=== PATIENT | female | born 1980 | race Caucasian/White ===

== ENCOUNTER 2020-09-17 08:56 | Outpatient (CLI) | payer BC, SELFPAY ==
--- NOTE | ~2020-09-17 | XR_ITS ---
MODIFIED ESOPHAGRAM HISTORY: Dysphagia. TECHNIQUE: Modified barium esophagram was performed on 09/17/2020. I administered fluoroscopy and perf ormed the exam with speech pathologist. Patient was seated for lateral fluoroscopic imaging for jeremy stion of thin liquids, pudding, solids and quantified amounts, followed by thin liquids in uncontroll ed amounts. This was recorded on tape. A single fluoroscopic spot image was also recorded. The DAP fo r this procedure was 2.248 Gycm2. The amount of fluoroscopy time used during this procedure was 2.0 m inutes. FINDINGS: Oral stage: Adequate function. Pharyngeal stage: Adequate function. Cervical/esophageal stage: Adequate function. IMPRESSION: Patient tolerated regular consistency oral feedings in the upright position. Please marilyn elate with speech pathologist findings and specific feeding recommendations. Reviewed, dictated and finalized at location A. SERVER DBA IMPRESSION: Patient tolerated regular consistency oral feedings in the upright position. Please correlate with speech pathologist findings and specific feedi ng recommendations.
--- NOTE | 2020-09-18 09:23 | STOPEVAL ---
MODIFIED BARIUM SWALLOW EVALUATION: Thank you for referring Winsome Saenz to [facility].? Attending Provider: Margaret Laguna, * Outpatient Evaluation ([facility] [place] Start: 09/17/20 16:28 Freq: Status: Discharge Protocol: Document 09/17/20 16:28 BECHERERT (Rec: 09/17/20 16:28 BECHERERT [id number]) Therapy Assessment Status Assessment Status Assessment Status Evaluation Outpatient Past Medical History Past Medical History Source of Past Medical History Patient Prior Level of Function Prior Swallow Level Prior Intake Method Oral Prior Diet Regular (Level 7 Diet) Prior Liquid Consistency Thin (Level 0 Diet) Pain Assessment Timing of Pain Assessment Timing of Pain Assessment Assessment Self Report Self Report Pain Level 0 Pain Score Pain Score 0: Self Report Modified Barium Swallow Evaluation Recent Swallowing History Reports Dysphagia Yes: food gets lodged;water can't get through Duration of Dysphagia x10 years but it is now getting worse Other Factors Impacting Dysphagia None History of Pneumonia No Reported Difficult Consistencies Solids Intake Method Prior to Swallow Oral Evaluation Diet Prior to Swallow Evaluation Regular, Level 7 Liquid Consistency Prior to Swallow Thin (0) Evaluation Consistency Solid Consistency Other Amount cracker Method of Presentation Spoon Oral Preparatory Symptoms None Oral Phase Symptoms None Pharyngeal Phase Symptoms None Severity of Vallecular Residue None - 0% No Residue Severity of Pyriform Sinus Residue None - 0% No Residue 8 Point Laryngeal Penetration-Aspiration Material Does Not Enter Airway Scale Cervical/Esophageal Symptoms None Mixed Consistency Other Amount fruit cocktail Method of Presentation Spoon Oral Preparatory Symptoms None Oral Phase Symptoms None Pharyngeal Phase Symptoms None Severity of Vallecular Residue None - 0% No Residue Severity of Pyriform Sinus Residue None - 0% No Residue 8 Point Laryngeal Penetration-Aspiration Material Does Not Enter Airway Scale Cervical/Esophageal Symptoms None Pureed Consistency Method of Presentation Spoon Oral Preparatory Symptoms None Oral Phase Symptoms None Pharyngeal Phase Symptoms None Severity of Vallecular Residue None - 0% No Residue Severity of Pyriform Sinus Residue None - 0% No Residue 8 Point Laryngeal Penetration-Aspiration Material Does Not Enter Airway Scale Cervical/Esophageal Symptoms None Thin Uncontrolled 2 Method of Presentation Straw Oral Prep
== END 2020-09-17 08:57 | disposition home or self-care (01) ==
LOC: ANHIMG 09:03
PROVIDERS: PCP Internal Medicine; Visit Provider Internal Medicine
DX: R13.10 Dysphagia, unspecified (principal)
CPT/HCPCS: 92611

== ENCOUNTER 2020-12-08 10:53 | Outpatient (CLI) | payer BC, SELFPAY ==
--- NOTE | 2020-12-11 19:43 | P.PCNHOL_ITS ---
Holter/Event Monitor Holter/Event Monitor Date of procedure: 12/11/20 Procedure Type: 48 hour Holter monitor Diagnosis: Palpitations Indications: Palpitations Image/Tracing Quality: Good Finding: The patient was monitored for 48 hours. The underlying rhythm was sinus with a minimum heart rate of 47 beats per minute, average heart rate of 78 beats per minute and a maximum heart rate 133 beats per minute. There were 30 PVCs noted. There were occasional APCs noted, with 9900 recorded, with some atrial bigeminy and 630 atrial couplets. There was no atrial fibrillation, SVT, heart block, V- tach or pauses. No symptoms were reported. Conclusion: 48 hour Holter monitor is remarkable for occasional APCs, with some atrial bigeminy atrial couplets noted. No symptoms recorded.
== END 2020-12-08 10:54 | disposition home or self-care (01) ==
PROVIDERS: PCP Internal Medicine; Visit Provider Internal Medicine
DX: R00.2 Palpitations (principal)
CPT/HCPCS: 93225; 93226

== ENCOUNTER 2021-11-29 15:08 | Emergency (ER) | payer BC, SELFPAY ==
--- NOTE | ~2021-11-29 | CT_ITS ---
EXAMINATION: CT brain wo con DATE: 11/29/2021 16:59 INDICATION: Left-sided facial pain. TECHNIQUE: Computed tomography (CT) of the head was performed without intravenous contrast. The mA wa s adjusted according to patient size. Iterative reconstruction technique was employed. The dose-lengt h product was 529.67 mGy-cm. COMPARISON: None FINDINGS: There is no intracranial hemorrhage, acute infarction, or abnormal intracranial mass lesion . The ventricles are normal in size. The paranasal sinuses are clear. The mastoid air cells are ovidio l. The orbits are normal. There are multiple masses in the scalp measuring up to 11 mm, likely benign . IMPRESSION: 1. Normal brain. Reviewed, dictated and finalized at location E. IMPRESSION: 1. Normal brain.
[2021-11-29 15:29] VITALS: BP 136/87; PULSE 110; RESP 18; TEMP 37.1; O2SAT 98
[2021-11-29 16:36] VITALS: BP 134/82; PULSE 76; RESP 18; TEMP 37.1; O2SAT 98
--- NOTE | 2021-11-29 16:51 | ED.GENADULT ---
HPI - General Adult General Chief complaint: Neuro Symptoms/Deficit Stated complaint: left side of face not working Time Seen by Provider: 11/29/21 16:19 Source: patient Mode of arrival: ambulatory Limitations: no limitations History of Present Illness HPI narrative: Patient is 41 years old white female presented to the ED complaining of that her left face look funny, not right, numbness and weird feeling at the left jaw, possible numbness, also mentioned that the drink sometimes come out left side of her mouth over the last 24 hours. Patient's told her that she looks like probably having Gee's palsy. Patient underwent dental procedure 5 days ago, subsequently developed some weird feeling at the back of her neck and at left jaw. Started on prednisone by her dentist. Patient denies any fever, chills, nausea, vomiting, headache. Related Data Home Medications Medication Instructions Recorded Confirmed acetaminophen 11/29/21 docusate sodium PO 11/29/21 fenofibrate nanocrystallized mg PO 11/29/21 ibuprofen 11/29/21 methylprednisolone 11/29/21 omeprazole 11/29/21 thyroid (pork) [[place] Thyroid] 11/29/21 thyroid (pork) [[place] Thyroid] 11/29/21 Allergies Allergy/AdvReac Type Severity Reaction Status Date / Time No Known Allergies Allergy Mild Verified 11/29/21 15:34 Review of Systems Review of Systems: CONSTITUTIONAL: Denies fever, chills, or sweats. EYES: Denies visual changes, redness, or discharge. ENT: Denies rhinorrhea, congestion, sore throat, or otalgia. CARDIOVASCULAR: Denies chest pain, palpitations, or edema. RESPIRATORY: Denies cough or dyspnea. GASTROINTESTINAL: Denies abdominal pain, nausea, vomiting, or diarrhea. GENITOURINARY: Denies dysuria or hematuria. SKIN: Denies rash or itching. MUSCULOSKELETAL: Denies back pain, joint pain, or myalgia. NEUROLOGIC: Denies headache, numbness, or weakness. PSYCHIATRIC: Denies anxiety or depression. Exam Narrative: General appearance: Well-developed, well-nourished Skin: Normal color Head: Normocephalic, nontraumatic Eyes: Clear conjunctiva ENT: Oropharynx normal, ears normal, nose normal Neck: Supple, nontender Chest and respiratory: Airway patent, no respiratory distress, no accessory muscle use Heart: Regular rate/rhythm Abdomen: Soft, nontender, no organomegaly, quiet bowel sounds Vascular: Normal peripheral pulses, normal capillary refill. Musculoskeletal: Normal range of motion, nontender back Neurologic: Alert and oriented ?3, POSITION DESCRIPTION MANAGER is normal as tested, no gross motor deficit Neuro: General: patient oriented x3, no focal motor deficits, CN's II-XI intact bilaterally and normal sensation to monofilament Cranial nerves: Yes CN's II-XII intact bilaterally, Yes Facial sensation intact/muscles of mastication intact, Yes Intact sense of smell present, Yes Equal, round and reactive pupils present, Yes Bilaterally intact EOM present, Yes Normal facial strength present and Yes facial symmetry Cognition (Neuro): normal cognition Speech: normal speech Gait exam (Neuro): Normal gait present Motor exam (neuro): 5/5 motor strength present throughout Sensory Exam: normal sensation Course Course Emergency Course: Physical exam did not show any signs of Gee's palsy. Patient declined CT soft tissue neck to rule out the possibility of complication of the dental procedure including abscess formation.
[2021-11-29 17:09] LABS: Basophils Absolute Auto 0.1 K/mm3 (0.0-0.1); Basophils Percent Auto 0.5 % (0.2-1.2); Eosinophils Percent Auto 0.3 % (0-4.4); Hematocrit 39.6 % (37.0-47.0); Hemoglobin 13.7 g/dL (12.0-15.0); Immature Granulocyte Absolute 0.42 K/mm3 (0.00-0.031); Immature Granulocyte Percent A 2.9 % (0-0.5); Lymphocytes Absolute Auto 2.31 K/mm3 (0.9-3.2); Lymphocytes Percent Auto 16.1 % (18.3-44.2); Mean Corpuscular HGB Conc 34.6 g/dl (32-36); Mean Corpuscular Hemoglobin 31.1 pg (26-34); Mean Platelet Volume 10.7 fl (7.4-10.4); Monocytes Absolute Auto 0.9 K/mm3 (0.1-0.6); Neutrophils Absolute Auto 10.6 K/mm3 (1.3-6.7); Neutrophils Percent Auto 74.2 % (45.5-73.1); Platelet Count Result 325 k/mm3 (150-375); Red Cell Distribution Width 11.9 % (11.5-14.5); White Blood Count 14.3 K/mm3 (4.5-10.0)
[2021-11-29 17:26] LABS: Alanine Aminotransferase 32 U/L (4-35); Albumin Level 4.5 g/dL (3.5-5.1); Alkaline Phosphatase 46 U/L (38-126); Anion Gap 9 mmol/L (8-16); Aspartate Amino Transferase 27 U/L (14-36); Bilirubin,Total 0.3 mg/dL (0.2-1.3); Blood Urea Nitrogen 14 mg/dL (7-17); Carbon Dioxide 24 mmol/L (22-30); Chloride 104 mmol/L (98-107); Estimated CRCL calculation 151 ml/min; Estimated Glomerular Filt Rate > 60; Glucose 119 mg/dL (65-110); Potassium 4.2 mmol/L (3.4-5.0); Sodium 137 mmol/L (137-145)
[2021-11-29 17:34] LABS: Erythrocyte Sedimentation Rate 5 mm/hr (0-20)
[2021-11-29 18:24] VITALS: BP 153/88; PULSE 83; RESP 20; O2SAT 97
== END 2021-11-29 19:37 | disposition left against medical advice (07) ==
LOC: ANHED 16:27
PROVIDERS: Emergency Provider Emergency Medicine; PCP Internal Medicine
DX: G50.1 Atypical facial pain (principal); Z98.818 Other dental procedure status
CPT/HCPCS: 36415; 70450; 80053; 85025; 85652; 99284

== ENCOUNTER → 2022-05-24 09:37 | Outpatient (CLI) | payer BC, SELFPAY ==
--- NOTE | ~2022-05-24 | US_ITS ---
US soft tissue lower back 05/24/2022 09:53 Indication: Localized swelling and palpable lump Procedure: High-resolution ultrasound of the low back Comparison: No prior studies for comparison. Findings: In the area of palpable concern in the lower back there is an oval hyperechoic mass with ci rcumscribed margins, parallel orientation and no posterior features or internal vascularity. This mas s measures 8 x 4 x 6 mm. Impression: 1: Oval hyperechoic 8 mm mass with characteristics consistent with lipoma. Reviewed, dictated and finalized at location B. Impression: 1: Oval hyperechoic 8 mm mass with characteristics consistent with lipoma.
== END ==
PROVIDERS: PCP Internal Medicine; Visit Provider Surgery
DX: R22.2 Localized swelling, mass and lump, trunk (principal)
CPT/HCPCS: 76705

== ENCOUNTER 2022-06-01 02:06 | Day surgery (SDC) | payer BC, SELFPAY ==
[2022-05-26 11:11] VITALS: BMI 32.6
--- NOTE | 2022-05-26 11:18 | PC.NURSE ---
Report to the Outpatient Waiting Room, entrance under the green pavilion located off [facility], at time 0800 on date 06/01/22. OR Time: 1000. Time changes happen often and if your time is changed the preop area will call you the afternoon before. - You and your visitor will be asked to self-screen and do not enter if you have any COVID symptoms. - Only one visitor and NO children visitors are allowed at this time. - The patient visitor is requested to leave or wait in car when not with patient due to restrictions. - A mask is required within the hospital. Patients may have clear liquids (water, carbonated beverages, clear teas, apple juice) until 3 hours prior to surgery with a maximum of 20 ounces. - No food from midnight until time of surgery Take the following medications with a SIP of water the morning of surgery: NONE Medications to discontinue per physician: VITAMINS Date to take last dose: 05/28/22 Please no make-up, nail luxembourgish, hairspray, perfume, deodorant, or body powder the day of surgery. No jewelry (including any body piercings) or valuables the day of surgery, leave them at home. Please take a shower or bath the night before, or the morning of, surgery with an antibacterial soap. Wear comfortable, loose fitting clothing. - Jewelry must be removed prior to entering the operating room. Rings and piercings that are not removed may be cut off. - The hospital will not accept responsibility for valuables. - Please leave all valuables, including medications, at home the day of surgery. If you are going home after surgery, a licensed wood pile driver operator must drive you home. - NO public transportation without another adult. - We recommend that an adult stay with you for 24 hours following discharge. - We also recommend that you do not drive, make important decision, drink alcoholic beverages, or take any drugs that were not prescribed by your health care provider for at least 24 hours after your discharge time. Follow any additional instructions given to you from your surgeon. If you or anyone in your household have experienced Covid symptoms in the past week, please notify your surgeon or the nurse liaison at the phone number below for possible testing. Telephone instructions given to PT - ISAIAS PINTO and asked if any additional questions and then verbalized understanding. Patient advised to call surgeon office or pre surgery nurse liaison [phone] if any additional questions.
--- NOTE | 2022-05-31 12:26 | P.PNAN_ITS ---
Anes - Initial Pre Proc Eval Procedure: Operation Date: 06/01/22 10:00 Proposed Procedures p Excision of Subcutaneous Mass Right Lower Back, Excision Subcutaneous Mass Right Forearm - Roshan Warner MD Date/Time: 05/31/22 12:26 Surgeon: Roshan Warner MD Pre Op Diagnosis: subq mass right lower back and right forearm Patient Data Age: 41 Gender: F Height: 1.73 m Weight: 97.52 kg Allergies Allergy/AdvReac Type Severity Reaction Status Date / Time adhesive Allergy Intermediate Hives Verified 06/01/22 08:48 cefdinir Allergy Intermediate Hives Verified 06/01/22 08:48 Home Medications Medication Instructions Recorded Confirmed Type fenofibrate nanocrystallized 145 145 mg PO DAILY 11/29/21 06/01/22 History mg tablet omeprazole 40 mg capsule,delayed 40 mg PO DAILY 11/29/21 06/01/22 History release thyroid (pork) 120 mg tablet 120 mg PO HS 11/29/21 06/01/22 History ([place] Thyroid) thyroid (pork) 15 mg tablet 15 mg PO HS 11/29/21 06/01/22 History ([place] Thyroid) multivitamin 1 tablet PO DAILY 05/26/22 06/01/22 History Patient hx anesthesia problems: none Family hx anesthesia problems: none Results Review: All pre-operative results and documents have been reviewed as part of the pre- operative evaluation. COUNT INCLUDES THE [facility] Past Medical History Medical History (Updated 06/01/22 @ 08:58 by Jase Rodríguez MD) Chronic GERD High cholesterol Hyperlipidemia Hypothyroidism Obesity Thyroid disease Surgical History Surgical History (Updated 05/13/22 @ 09:20 by Yee Randolph) S/P abdominoplasty S/P S/P hysterectomy S/P oophorectomy Family History Family History (Updated 05/13/22 @ 09:50 by Yee Randolph) Father Acute myocardial infarction Factor V deficiency DVT (deep venous thrombosis) Mother High cholesterol Sibling GERD (gastroesophageal reflux disease) Unknown Diabetes mellitus Heart disease Hypertension Cancer Kidney disease Social History Social History (Updated 05/13/22 @ 09:50 by Yee Randolph) Smoking status: Never smoker Alcohol intake: current Drinks per week: 1 Substance use: never Substance use type: does not use Living arrangements: with family Spiritual care concerns: No Anes - Eval Final PreProcedure Day of Procedure 05/31/22 12:26 Patient weight: obese Heart: regular rate and rhythm Lungs: clear to auscultation and normal air movement Airway: Mallampati scale class II Neurological: alert and oriented Last oral intake: >/= 8 hours ASA classification: II Emergent: no Anesthetic plan: proceed Anesthesia type and monitoring: general Results Review: All pre-operative results and documents have been reviewed as part of the pre- operative evaluation. Informed Consent: The patient's anesthetic plan and its attendant risks and benefits were discussed with the patient/family/POA. Questions were solicited and answers provided to the satisfaction of the patient/family/POA.
[2022-06-01] VITALS (9 sets, daily range): BP systolic 117–149; BP diastolic 75–88; PULSE 82–102; RESP 16–20; TEMP 37; O2SAT 97–100
[2022-06-01] MEDS: LACTATED RINGERS 1,000 ML 30 ML IV CONT ×2 (08:50→12:15)
--- NOTE | 2022-06-01 09:55 | WPDHPUPDATE1 ---
History and Physical Update Update Date/Time: 06/01/22 09:55 History and Physical has been reviewed, including an updated exam of the patient. There are NO changes in the patient's condition. Risks, benefits, and alternatives have been discussed and questions answered. Patient agrees to proceed with procedure.
[2022-06-01] MEDS: CLINDAMYCIN 900 MG/D5W 50 ML 900 MG/50 ML PIGGYBACK 50 MG IVPB (10:05)
[2022-06-01] MEDS: SCOPOLAMINE 1.5 MG PATCH TRANSDERM (10:08)
[2022-06-01] MEDS: BUPIVACAINE/EPINEPHRINE 0.25% 50 ML VIAL INFILTRATE (11:07)
--- NOTE | 2022-06-01 11:33 | W.PM.PROC2 ---
Procedure Note - Detailed Date of Procedure 06/01/22 Pre-op Diagnosis subq mass right lower back and right forearm Post-op Diagnosis Same Procedure Performed Excision 2.5 cm subcutaneous mass right forearm, excision 1.5 cm subcutaneous mass right lower back Surgeon Roshan Warner MD Continuing Education Dean Samantha Grider [facility] Anesthesia General and Local (0.25% Marcaine with epinephrine) Indications Patient presented with a very tender nodule in the right lower back on the side of the spine. It is close to the sacrum in the lower lumbar region. The area was very tender but difficult to palpate. She had an ultrasound preoperatively that showed an 8 mm nodule in the area of the tenderness consistent with a lipoma. She also has a lipoma on the volar aspect of her right wrist. She is taken to surgery now for excision of both of these nodules. Findings Both nodules appeared to be subcutaneous lipomas. Description of Procedure The patient was checked in the preoperative holding area. Both the right forearm nodule as well as the nodule in the right lower back were marked on the skin. The nodule in the right lower back, in particular, was carefully marked with the patient in a prone position that would coincide with her intraoperative position. The exact location of the nodule in the right lower back was marked on the skin. She was then taken to surgery and general endotracheal anesthesia was introduced. The patient was left on the cart in a supine position with the right arm extended to her side. It was prepped and draped. The says subcutaneous mass was on the ulnar side of the volar forearm. Local was infiltrated over the anticipated incision and in a field block around the nodule. Incision was then made deepened through the skin. The lipoma was very superficial and was noted on passing through the skin. There were a couple of superficial veins which were cauterized and divided. I then carefully dissected the lipoma from the subcutaneous using blunt and sharp dissection. Eventually it was excised and sent to pathology in formalin. It was 2.5 cm in greatest dimension. The wound was then made hemostatic with the cautery. The subcutaneous was loosely approximated with 3-0 Vicryl. Some subcuticular 4-0 Vicryl skin stitches were placed. The skin was then closed with a running 4-0 Monocryl skin suture. The wound was dressed with Exofin surgical adhesive. Patient was then turned to the prone position. She was still intubated. The area of the right lower back nodule was seen easily. Prep and drape was carried out on the right lower back. Local was infiltrated over the transversely oriented anticipated incision. Incision was made and fortunately the this subcutaneous nodule was right under the skin as well. This was also a lipoma. Careful dissection both sharp and blunt was carried out and the nodule was removed. It was a 1.5 cm lipoma. The wound was made hemostatic with the cautery. The skin was loosely approximated with 3-0 Vicryl subcuticular skin suture. It was closed with a running 4-0 Monocryl skin suture. Exofin surgical adhesive was also applied to this wound as well. Patient was then returned to a supine position. She was awakened, extubated and then taken to recovery in good condition. Sponge needle counts were correct x2. Estimated Blood Loss -5 Drains No Packing No Pathology Yes (Subcutaneous mass right forearm, subcutaneous mass right lower back.) Complications No immediate complications Condition Stable Disposition PACU [facility] Billing Surgery - Charge Forward: Surgery Billing (Excision 2.5 cm subcutaneous mass right forearm, excision 1.5 cm subcutaneous mass right lower back.)
== END 2022-06-01 13:40 | disposition home or self-care (01) ==
PROVIDERS: PCP Internal Medicine; Visit Provider Surgery
PROC: (CPT 21930; principal; 2022-06-01 10:00)
DX: D17.1 Benign lipomatous neoplasm of skin and subcutaneous tissue of trunk (principal); D17.21 Benign lipomatous neoplasm of skin and subcutaneous tissue of right arm; E03.9 Hypothyroidism, unspecified; E78.5 Hyperlipidemia, unspecified; K21.9 Gastro-esophageal reflux disease without esophagitis; E66.9 Obesity, unspecified; Z68.32 Body mass index [BMI] 32.0-32.9, adult
CPT/HCPCS: 21930; 25075; 88304; A9270; J2250; J3010; J7120

== ENCOUNTER 2022-06-22 07:30 | Outpatient (CLI) | payer BC, SELFPAY ==
--- NOTE | ~2022-06-22 | MM_ITS ---
EXAMINATION: MM screening [facility] BI w pankaj HISTORY: Baseline screening mammogram TECHNIQUE: Craniocaudal and mediolateral oblique 3-D tomosynthesis images were obtained and synthetic 2-D images were generated. CAD analysis was submitted and interpreted. COMPARISON: None, baseline BREAST PARENCHYMAL COMPOSITION: There are scattered areas of fibroglandular density. FINDINGS: Bilateral breast masses with central lucency have the appearance of intramammary lymph node s. No suspicious mass, calcification, or architectural distortion are identified in either breast to suggest malignancy. IMPRESSION: 1. No mammographic evidence of malignancy. 2. Recommend routine screening mammography in one year. BI-RADS Category 2: Benign finding(s). Reviewed, dictated and finalized at location A.
== END 2022-06-22 07:31 | disposition home or self-care (01) ==
PROVIDERS: PCP Internal Medicine; Visit Provider Internal Medicine
DX: Z12.31 Encounter for screening mammogram for malignant neoplasm of breast (principal)
CPT/HCPCS: 77063; 77067

== ENCOUNTER 2022-08-23 13:04 | Emergency (ER) | payer BC, SELFPAY ==
[2022-08-23 13:38] VITALS: BP 152/61; PULSE 80; RESP 16; TEMP 36.8; O2SAT 99
--- NOTE | 2022-08-23 14:37 | ED.URI ---
HPI - URI/Sore Throat General Chief Complaint: Upper Respiratory Infection Stated Complaint: Ear Irritation Time Seen by Provider: 08/23/22 14:37 Source: patient, RN notes reviewed and old records reviewed Mode of arrival: ambulatory Limitations: no limitations History of Present Illness HPI Narrative: 42-year-old female presents to the [facility] with complaints of left ear pain and pressure. That is radiating into her left sinuses. symptoms started yesterday. Had taken ibuprofen Related Data Home Medications Medication Instructions Recorded Confirmed fenofibrate nanocrystallized 145 145 mg PO DAILY 11/29/21 06/14/22 mg tablet omeprazole 40 mg capsule,delayed 40 mg PO DAILY 11/29/21 06/14/22 release thyroid (pork) 120 mg tablet 120 mg PO HS 11/29/21 06/14/22 ([place] Thyroid) thyroid (pork) 15 mg tablet 15 mg PO HS 11/29/21 06/14/22 ([place] Thyroid) multivitamin 1 tablet PO DAILY 05/26/22 06/14/22 Allergies Allergy/AdvReac Type Severity Reaction Status Date / Time adhesive Allergy Intermediate Hives Verified 08/23/22 14:45 cefdinir Allergy Intermediate Hives Verified 08/23/22 14:45 Review of Systems Review of Systems: All systems reviewed & are unremarkable except as noted in HPI and below Constitutional: Constitutional: Reports no additional constitutional complaints Eyes: Eyes: Reports no additional eye complaints ENT: Reports as per HPI and Reports nasal congestion Cardiovascular: Cardiovascular: Reports no additional cardiovascular complaints, Denies chest pain and Denies dyspnea Respiratory: Respiratory: Reports no additional respiratory complaints, Denies chest congestion, Denies cough and Denies dyspnea Gastrointestinal: Gastrointestinal: Reports no additional gastrointestinal complaints, Denies abdominal pain, Denies nausea and Denies vomiting Musculoskeletal: Musculoskeletal: Reports no additional musculoskeletal complaints Integumentary/Breasts: Skin/Breast: Reports system reviewed and no additional complaints, except as docu Neurologic: Reports system reviewed and no additional complaints, except as documented Psychiatric: Psychiatric: Reports no additional psychiatric complaints Allergic/Immunologic: Allergic/Immunologic: Reports no additional allergic/immunologic complaints [facility] Past Medical History Medical History Chronic GERD High cholesterol Hyperlipidemia Hypothyroidism Obesity Thyroid disease Surgical History Surgical History H/O excision of mass Excision of SQ masses rt lower back and Left forearm performed on 06/01/22. S/P abdominoplasty S/P S/P hysterectomy S/P oophorectomy Family History Family History Father Acute myocardial infarction Factor V deficiency DVT (deep venous thrombosis) Mother High cholesterol Sibling GERD (gastroesophageal reflux disease) Unknown Diabetes mellitus Heart disease Hypertension Cancer Kidney disease Social History Social History Smoking status: Never smoker Alcohol intake: current Drinks per week: 1 Substance use: never Substance use type: does not use Gender identity (if verbalized by the patient): Female Sexual Orientation (if Verbalized by the Patient): Straight or Heterosexual Spiritual care concerns: No Comments At the time of my signature, I reviewed and agree with the nursing past medical, surgical, social, and family history. There is no relevant family history pertinent to the patient complaint. Exam Const: General: cooperative, healthy appearing, comfortable, no acute distress, well developed, alert and well nourished Nutritional Appearance: well nourished Orientation/consciousness: patient oriented x3 Limitations: no limitations HENMT: Head: no
== END 2022-08-23 14:53 | disposition home or self-care (01) ==
PROVIDERS: Emergency Provider Nurse Practitioner; PCP Internal Medicine
DX: H66.92 Otitis media, unspecified, left ear (principal); K21.9 Gastro-esophageal reflux disease without esophagitis; E78.00 Pure hypercholesterolemia, unspecified; E78.5 Hyperlipidemia, unspecified; E03.9 Hypothyroidism, unspecified; E66.9 Obesity, unspecified; Z68.32 Body mass index [BMI] 32.0-32.9, adult
CPT/HCPCS: 99213; G0463

== ENCOUNTER 2023-11-11 07:58 | Outpatient (CLI) | payer BC, SELFPAY ==
--- NOTE | ~2023-11-11 | MM_ITS ---
EXAMINATION: MM screening nahum BI w pankaj HISTORY: Screening mammogram TECHNIQUE: Craniocaudal and mediolateral oblique 3-D tomosynthesis images were obtained and synthetic 2-D images were generated. CAD analysis was submitted and interpreted. COMPARISON: 06/22/2022 bilateral screening mammogram BREAST PARENCHYMAL COMPOSITION: There are scattered areas of fibroglandular density. FINDINGS: There is no evidence of suspicious mass, calcification, or architectural distortion to sugg est malignancy in either breast. There has been no suspicious interval change. IMPRESSION: 1. No mammographic evidence of malignancy. 2. Recommend routine screening mammography in one year. BI-RADS Category 1: Negative Reviewed, dictated and finalized at location A.
== END 2023-11-11 07:59 | disposition home or self-care (01) ==
LOC: ANHIMG 08:03
PROVIDERS: PCP Internal Medicine; Visit Provider Internal Medicine
DX: Z12.31 Encounter for screening mammogram for malignant neoplasm of breast (principal)
CPT/HCPCS: 77063; 77067

== ENCOUNTER 2025-03-18 14:19 | Outpatient (CLI) | payer BC, SELFPAY ==
--- NOTE | ~2025-03-18 | MM_ITS ---
EXAMINATION: MM screening nahum BI w pankaj HISTORY: Screening TECHNIQUE: Craniocaudal and mediolateral oblique 3-D tomosynthesis images were obtained and synthetic 2-D images were generated. CAD analysis was submitted and interpreted. COMPARISON: Comparison to multiple prior studies sequentially, with oldest reviewed study dated 05/30. BREAST PARENCHYMAL COMPOSITION: There are scattered areas of fibroglandular density. FINDINGS: There is no evidence of suspicious mass, calcification, or architectural distortion to sug gest malignancy in either breast. IMPRESSION: 1. No mammographic evidence of malignancy. 2. Recommend routine screening mammography in one year. BI-RADS Category 1: Negative Reviewed, dictated and finalized at location B.
--- OUTSIDE RECORDS SUMMARY | 2025-03-18 14:23 | XMS_ITS | Clinical Summary ---
Demographics Address [address] [place] [address] [place] [address] Home Phone Mobile Phone Email Address [email or web address] [employer] Preferred Language Unknown Marital Status Unknown Sikh Affiliation Unknown Race Unknown Ethnic Group Unknown Author Organization [facility] Care Team Providers Care Assistant Family Teacher Name Role Phone Unavailable Primary Care Provider Unavailabl e Social History Tobacco Use Types Packs/Day Years Used Date Smoking Tobacco: Never Assessed Comments Unknown Sex and Gender Information Value Date Recorded Sex Assigned at Not on file Legal Sex Female 3:06 PM SUBWAY GUARD Gender Identity Not on file Sexual Orientation Not on file Plan of Treatment Health Maintenance Due Date Last Done Comments Hepatitis C Virus (HCV) Screening 1981 TdaP Immunization 1981 Hepatitis B Immunization (1 of 3 - 19+ 3-dose series) 2000 Pap Smear 2002 Cervical Cancer Screening (CCS) 2011 HPV/Cotest 2011 Discussion re Starting/Frequency of Mammograms 2021 Influenza Immunization (#1) 04/29/202405/29, 06/30/2019, 06/30/2018, Additional history exists SARS-COV-2 Immunization ( season) 2024 Respiratory Syncytial Virus (RSV) Immunization (Adult) (1 - 1-dose 75+ series) 2056 Meningococcal Immunization (ACWY) Aged Out No longer eligible based on patient's age to complete this topic Pneumococcal Immunization Combined Aged Out No longer eligible based on patient's age to complete this topic Rotavirus Immunization Aged Out No lo nger eligible based on patient's age to complete this topic
--- OUTSIDE RECORDS SUMMARY | 2025-03-18 14:23 | XMS_ITS | Clinical Summary ---
Author Organization [facility] Address [address] [place] [id number] Care Team Providers Care Rn Clinical Quality Name Role Phone Unavailable Primary Care Provider Unavailabl e Social History Tobacco Use Types Packs/Day Years Used Date Smoking Tobacco: Never Assessed Comments Unknown Sex and Gender Information Value Date Recorded Sex Assigned at Not on file Legal Sex Female 7:57 PM CDT Gender Identity Not on file Sexual Orientation Not on file Plan of Treatment Health Maintenance Due Date Last Done Comments Cervical Cancer Screening Pa p Smear (Age 30 to 64) Every 3 Years 1981 Annual Physical 1984 Hepatitis C 1999 DTaP, Tdap and Td Vaccines ( 1 - Tdap) 2000 Hepatitis B Vaccines (1 of 3 - 19+ 3-dose series) 2000 HPV Vaccines (1 - 3-dose SCD M series) 2008 Cervical Cancer Screening Pa p with HPV Testing (Age 30 to 64) Every 5 Years 2011 Cervical Cancer Screening with HPV 2011 Mammogram Screening 2021 COVID-19 Vaccine ( - 2023-2 5 season) 2024 Meningococcal B Vaccine Aged Out No l onger eligible based on patient's age to complete this topic Meningococcal Vaccine Aged Out No errol latesha eligible based on patient's age to complete this topic Pneumococcal Vaccine: Pediat rics (0 to 5 Years) and At-Risk Patients (6 to 49 Years) Aged Out No longer eligible b ased on patient's age to complete this topic RSV Immunizations Under 20 Months Aged Out No longer eligible based on patient's age to complete this topic
--- OUTSIDE RECORDS SUMMARY | 2025-03-18 14:23 | XMS_ITS | Clinical Summary ---
Author Organization [facility] Address [address] [place] [address] Care Team Providers Care Supervisor Special Services Name Role Phone Margaret Laguna MD Primary Care Provider [phone] Source Comments [facility],non-[facility] Affiliates and Associated Physician Practices is amultiple site organization consisting of ambulatory clinics and hospital sitesin [place], [place], [place] and [place]. This disclosure is being madepursuant to the Care Everywhere program and may not contain all information available regarding this patient. Last updated 18.[facility] Allergies Active Allergy Reactions Criticality Noted Date Comments ADHESIVE TAPE [Other] Urticaria Medium 12/11/2018 Cefdinir Diarrhea 12/11/2018 Levofloxacin Rash Medium 12/12/2018 Medications * Be aware that medications may not be up to date on this document. Alwaysverify current medications with the patient. thyroid (ARMOUR THYROID) 90 MG tablet Take 90 mg by mouth once daily Active fenofibrate (TRICOR) 145 MG tablet Take 145 mg by mouth once daily Active Gomer-3 Fatty Acids (FISH OIL) 1000 MG capsule Take 1,000 mg by mouth once daily Active calcium 600 MG tablet Take 1 tablet by mouth daily with food Active Cholecalcifero l (VITAMIN D3) 28157 UNITS TABS Take 5,000 Units by mouth once daily Active cyanocobalamin (VITAMIN B-12) 1000 MCG tablet Take 1,000 mcg by mouth once daily Active omeprazole (PRILOSEC) 40 MG capsule 40 mg daily before breakfast 1 Active triamcinolone acetonide (KENALOG) 0.1 % cream APPLY TO RASH AREAS TWICE A DAY FOR FOR WEEKS IF FLARE UPS OCCUR (NO FACE) 1 Active minoxidil (ROGAINE EXTRA STRENGTH) 5 % solution Active bifantis (ALIGN) capsule Take 1 capsule by mouth once daily Active Magnesium 100 MG Take by mouth once daily Active ibuprofen (MOTRIN) 600 MG tablet Take 1 (one) tablet by mouth every 6 hours 40 tablet 1 1 Active oxyCODONE, immediate release, (ROXICODONE) 5 MG tablet Take 1 (one) tablet by mouth every 6 hours as needed for Pain 15 tablet 1 Active docusate sodium (COLACE) 100 MG capsule Take 1 (one) capsule by mouth 2 times daily 28 capsule 1 Active acetaminophen (TYLENOL) 325 MG tablet Take 2 (two) tablets by mouth every 6 hours Maximum allowable Acetaminophen amount = 4 Grams (4000 mg) / 24 hours. 40 tablet 1 1 Active polyethylene glycol 3350 (MIRALAX) 17 GM/SCOOP powder Take 17 (seventeen) g by mouth once daily as needed for constipation 500 g 1 Active estradiol (Estrace) 1 MG tablet TAKE 1 TABLET BY MOUTH EVERY DAY 90 tablet 5 Active Active Problems Problem Noted Date Diagnosed Date S/P hysterectomy 03/06/2019 Excess skin of abdominal wall 12/29/2018 Fibroid Left ovarian cyst Family History Medical History Relation Name Comments CAD (Coronary Artery Disease) Maternal Grandfather DVT - Deep Vein Thrombosis Maternal Grandfather Hypertension Maternal Grandfather Cancer - Colon Other cousin Relation Name Status Comments Maternal Grandfather Other cousin Alive Social History Tobacco Use Types Packs/Day Years Used Date Smoking Tobacco: Never Smokeless Tobacco: Never Tobacco Cessation:Counseling Given: Not Answered Alcohol Use Standard Drinks/Week Comments No 1 (1 standard drink = 0.6 oz pur e alcohol) RARE Comments No Sex and Gender Information Value Date Recorded Sex Assigned at Not on file Legal Sex Female 10:53 AM CDT Gender Identity Not on file Sexual Orientation Not on file Last Filed Vital Signs Vital Sign Reading Time Taken Comments Blood Pressure 118/78 09/15/2023 12:07 PM CIRCULAR RIPSAW OPERATOR Pulse 79 03/10/2021 11:25 AM CDT Temperature 36.4 C (97.5 F) 03/10/2021 9:55 AM CDT Respiratory Rate 16 03/10/2021 11:25 AM CDT Oxygen Saturation 96% 03/10/2021 11:25 AM CDT Inhaled Oxygen Concentration - - Weight 95.7 kg (211 lb) 09/15/2023 12:07 PM CIRCULAR RIPSAW OPERATOR Height 172.7 cm (5' 8) 09/15/2023 12:07 PM CIRCULAR RIPSAW OPERATOR Body Mass Index 32.08 09/15/2023 12:07 PM CIRCULAR RIPSAW OPERATOR Plan of Treatment Health Maintenance Due Date Last Done Comments MAMMOGRAM 1981 HIV SCREENING 1996 HEPATITIS C SCREENING 07/22/1999 DTAP/TDAP/TD VACCINES (1 - Tdap) 2000 HEPATITIS B VACCINE (1 of 3 - 19+ 3-dose series) 2000 HPV VACCINE (1 - 3-dose SCDM series) 2008 SCREENING FOR DIABETES 02/06/2024 02/05/2021 COVID-19 VACCINE ( season) 2024 06/26/2022, 07/15/2021, 10/01/2020 DEPRESSION SCREENING 08/29/2024 INFLUENZA VACCINE (#1) 2025 , 07/16/2021, 06/12/2020, Additional history exists LIPID TESTING 02/05/2026 02/05/2021 ZOSTER VACCINE (1 of 2) 2031 HIB VACCINE Aged Out No longer eligi ble based on patient's age to complete this topic MENINGOCOCCAL (Group B) VACCINE SHARED DECISION-MAKING Aged Out No longer eligible based on patient's age to complete this topic MENINGOCOCCAL GROUPS A/C/Y/W VACCINE Aged Out No longer eligible based on patient's age to complete this topic PNEUMOCOCCAL VACCINE Aged Out No long er eligible based on patient's age to complete this [place] [address] SELF PAY NO INSURANCE [place] [address] Care Teams Supervisor Special Services Relationship Specialty Start Date End Date Margaret Laguna MD PCP - General 01/07/21
--- OUTSIDE RECORDS SUMMARY | 2025-03-18 14:23 | XMS_ITS | Clinical Summary ---
Author Organization [facility] Address [address] [place] [id number] Care Team Providers Care Stone Cutter Name Role Phone Margaret Laguna MD Primary Care Provider [phone] Allergies Active Allergy Reactions Criticality Noted Date Comments Adhesive Urticaria Medium 12/11/2018 Medications fenofibrate nanocrystallized (TRICOR) 145 mg tablet Take 145 mg by mouth daily Active calcium carbonate (CALCIUM 600 ORAL) Take 1 tablet by mouth 3 (three) times a day with meals Active docosahexaenoic acid-epa 120-180 mg capsule Take 1,000 mg by mouth daily Active cholecalciferol (VITAMIN D-3) 94735 unit tablet Take 5,000 Units by mouth daily Active cyanocobalamin (Vitamin B-12) 1,000 mcg tablet Take 1,000 mcg by mouth daily Active docusate sodium (COLACE) 100 mg capsule Take 100 mg by mouth daily 05/08/20 19 Active omeprazole (PriLOSEC) 40 mg capsule 12/24/19 21 Active Letcher Thyroid 120 mg tablet TAKE 1 TABLET BY MOUTH EVERY DAY ON AN EMPTY STOMACH 12/27/19 21 Active minoxidiL 5 % solution Apply topically Active Active Problems Problem Noted Date Diagnosed Date Atrial premature contractions 01/08/2021 Surgical History Surgery Date Site/Laterality Comments SECTION HYSTERECTOMY 08/29/2018 - 08/28/2019 Medical History Medical History Date Comments Thyroid disease Hyperlipidemia Acid indigestion Family History Relation Name Status Comments Brother Alive Father Alive Mother Alive Social History Tobacco Use Types Packs/Day Years Used Date Smoking Tobacco: Never Smokeless Tobacco: Never AUDIT-C Answer Date Recorded Q1: How often do you have a drink containing alcohol? 4 or more times a week 01/08/2021 Q2: How many drinks containi ng alcohol do you have on a typical day when you are drinking? 1 or 2 Q3: How often do you have si x or more drinks on one occasion? 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 RESOURCES PROFESSIONAL Gender Identity Not on file Sexual Orientation Not on file Obstetrics History Last Filed Vital Signs Vital Sign Reading Time Taken Comments Blood Pressure 112/72 02/05/2021 10:45 AM CDT Pulse 79 02/05/2021 10:45 AM CDT Temperature - - Respiratory Rate - - Oxygen Saturation 98% 02/05/2021 10:45 AM CDT Inhaled Oxygen Concentration - - Weight 93.4 kg (206 lb) 02/05/2021 10:45 AM CDT Height 172.7 cm (5' 8) 02/05/2021 10:45 AM CDT Body Mass Index 31.32 02/05/2021 10:45 AM CDT Plan of Treatment Not on [place] [address] [facility] Care Teams Stone Cutter Relationship Specialty Start Date End Date Margaret Laguna MD PCP - General Internal Medicine 12/12/20
--- OUTSIDE RECORDS SUMMARY | 2025-03-18 14:23 | XMS_ITS | Clinical Summary ---
Author Organization [facility] Address [address] [place] [id number] Phone Care Team Providers Care Law Office Receptionist Name Role Phone Maciel Gee MD Primary Care Provider [phone] Allergies Active Allergy Reactions Criticality Noted Date Comments Levofloxacin 12/12/2018 Medications thyroid (ARMOUR) 120 MG tablet Take 120 mg by mouth 1 (one) time each day. Active fenofibrate (TRICOR) 145 MG tablet Take 145 mg by mouth 1 (one) time each day. Active ethynodiol-ethin yl estradiol (KELNOR,ZOVIA) 1-35 MG-MCG per tablet Take by mouth. Active CALCIUM PO Take 1 tablet by mouth. Active Cholecalciferol (VITAMIN D3) 66387 units tablet Take 5,000 Units by mouth. Active omega-3 (FISH OIL) 1000 MG capsule Take 1,000 mg by mouth. Active Active Problems Problem Noted Date Diagnosed Date Blood in urine 12/12/2018 Social History Tobacco Use Types Packs/Day Years Used Date Smoking Tobacco: Never Smokeless Tobacco: Never Alcohol Use Standard Drinks/Week Comments Yes 1 (1 standard drink = 0.6 oz pur e alcohol) Comments Unknown Sex and Gender Information Value Date Recorded Sex Assigned at Not on file Legal Sex Female 12:09 PM MDT Gender Identity Not on file Sexual Orientation Not on file Last Filed Vital Signs Vital Sign Reading Time Taken Comments Blood Pressure 134/70 12/13/2018 11:05 AM CDT Pulse 84 12/13/2018 11:05 AM CDT Temperature 36.7 C (98 F) 12/13/2018 11:05 AM CDT Respiratory Rate - - Oxygen Saturation - - Inhaled Oxygen Concentration - - Weight 92.1 kg (203 lb) 12/13/2018 11:05 AM CDT Height 172.7 cm (5' 8) 12/13/2018 11:05 AM CDT Body Mass Index 30.87 12/13/2018 11:05 AM CDT Plan of Treatment Health Maintenance Due Date Last Done Comments Influenza Vaccine (#1) 2025 Insurance [facility] Care Teams Law Office Receptionist Relationship Specialty Start Date End Date Maciel Gee MD PCP - General Family Medicine 12/12/18
--- OUTSIDE RECORDS SUMMARY | 2025-03-18 14:23 | XMS_ITS | Referral Summary ---
Author Organization [facility] Address [address] [place] [id number] Care Team Providers Care Washing Machine Repairer Name Role Phone Margaret Laguna MD Primary Care Provider [phone] Allergies Active Allergy Reactions Criticality Noted Date Comments Adhesive Urticaria Medium 12/11/2018 Medications fenofibrate nanocrystallized (TRICOR) 145 mg tablet Take 145 mg by mouth daily Active calcium carbonate (CALCIUM 600 ORAL) Take 1 tablet by mouth 3 (three) times a day with meals Active docosahexaenoic acid-epa 120-180 mg capsule Take 1,000 mg by mouth daily Active cholecalciferol (VITAMIN D-3) 28818 unit tablet Take 5,000 Units by mouth daily Active cyanocobalamin (Vitamin B-12) 1,000 mcg tablet Take 1,000 mcg by mouth daily Active docusate sodium (COLACE) 100 mg capsule Take 100 mg by mouth daily 05/08/20 19 Active omeprazole (PriLOSEC) 40 mg capsule 12/24/19 21 Active Epworth Thyroid 120 mg tablet TAKE 1 TABLET BY MOUTH EVERY DAY ON AN EMPTY STOMACH 12/27/19 21 Active minoxidiL 5 % solution Apply topically Active Active Problems Problem Noted Date Diagnosed Date Atrial premature contractions 01/08/2021 Social History Tobacco Use Types Packs/Day Years [...] on file Legal Sex Female 7:09 PM FAMILY WELFARE SOCIAL WORK PROFESSOR Gender Identity Not on file Sexual Orientation [...] of Treatment Not on [place] [address] [facility] [address] [place] [address] Care Teams Washing Machine Repairer Relationship Specialty Start Date End Date Margaret Laguna MD PCP - General Internal Medicine 12/12/20
--- OUTSIDE RECORDS SUMMARY | 2025-03-18 14:23 | XMS_ITS | Encounter Summary ---
Author Organization [facility] Address [address] [place] [address] Phone Care Team Providers Care Record Clerk Salesperson Name Role Phone Margaret Laguna MD Primary Care Provider [phone] Encounter Details Date Type Department Care Team (Latest Contact Info) Description 04/10/2021 Orders Only [facility] Scanning, Provider Social History Tobacco Use Types Packs/Day Years [...] more drinks on one occasion? Never 01/08/2021 Comments Unknown Sex and Gender Information Value Date Recorded Sex Assigned at Not on file Legal Sex Female 7:09 PM CORRECTIONAL SUBSTANCE ABUSE COUNSELOR Gender Identity Not on file Sexual Orientation Not on file documented as of this encounter Plan of Treatment Not on file documented as of this encounter Procedures Procedure Name Priority Date/Time Associated Diagnosis Comments SCAN - LABS 04/10/2021 documented in this encounter Results * SCAN - LABS (04/10/2021) us Provider Scanning Final Result documented in this encounter Visit Diagnoses Not on filedocumented in this encounter Care Teams Record Clerk Salesperson Relationship Specialty Start Date End Date Margaret Laguna MD PCP - General Internal Medicine 12/12/20 documented as of this encounter
== END 2025-03-18 14:20 | disposition home or self-care (01) ==
PROVIDERS: PCP Internal Medicine; Visit Provider Family Medicine
DX: Z12.31 Encounter for screening mammogram for malignant neoplasm of breast (principal)
CPT/HCPCS: 77063; 77067